=== PATIENT | female | born 1950 | race Caucasian/White ===

== ENCOUNTER 2020-01-19 07:02 | Day surgery (SDC) | payer MEDICARE, OTHER ==
[~2020-01-19 07:02] MED LIST: Brimonidine 0.2% Ophth Soln 5 ML Bottle EYERT SCH; Cefuroxime 10 MG/ML SYRINGE EYERT SCH; Phenylephrine 2.5% Ophth Soln 15 ML Bot EYERT SCH; Pilocarpine 4% Ophth Soln 15 ML Bot EYERT SCH; Polymyxin B/Trimethoprim 10 ML Bottle EYERT SCH; Tropicamide 1% Ophth Soln 15 ML Bottle EYERT SCH
[2020-01-19] MEDS: Ofloxacin 0.3% Ophth Soln 5 ML Bottle EYELF SCH ×3 (07:32→09:13)
[2020-01-19] MEDS: Brimonidine 0.2% Ophth Soln 5 ML Bottle EYELF SCH ×4 (07:38→09:13)
[2020-01-19] MEDS: Tropicamide 1% Ophth Soln 15 ML Bottle EYELF SCH ×4 (07:43→08:29)
[2020-01-19] MEDS: Phenylephrine 2.5% Ophth Soln 2 ML Bot EYELF SCH ×7 (07:43→08:54)
--- NOTE | 2020-01-19 07:55 | PCM.PREANE ---
Preanesthetic Assessment - Procedure Proposed Procedure: Cataract - Anesthesia/Transfusion/Family Hx Anesthesia History: Prior Anesthesia Without Reaction Type of Anesthesia Reaction: Excessive Nausea/Vomiting Family History of Anesthesia Reaction: No Transfusion History: No Prior Transfusion(s) Intubation History: Unknown - Review of Systems General: No Symptoms Pulmonary: No Symptoms Cardiovascular: No Symptoms (HTN) Gastrointestinal: No Symptoms (GERD) Neurological: No Symptoms (Lower back pain with injections being given.) Other: Reports: Easy Bruising, Thyroid Problems (Hypothyroid), Anxiety - Physical Assessment NPO Status Date: 01/18/20 NPO Status Time: 21:00 Vital Signs: HR: 80 BP: 146/73 Resp:16 HR: 80 Sat: 96% Height: 1.55 m Weight: 70.307 kg ASA Class: 3 Mental Status: Alert & Oriented x3 Airway Class: Mallampati = 2 Dentition: Reports: Normal Dentition, Caries Thyro-Mental Finger Breadths: 3 Mouth Opening Finger Breadths: 3 ROM/Head Extension: Full Lungs: Clear to Auscultation, Normal Respiratory Effort Cardiovascular: Regular Rate, Regular Rhythm, No Murmurs - Allergies Allergies/Adverse Reactions: Allergies Allergy/AdvReac Type Severity Reaction Status Date / Time Sulfa (Sulfonamide Allergy Cannot Verified 01/18/20 15:16 Antibiotics) Remember - Anesthesia Plan Pre-Op Medication Ordered: None - Acknowledgements Anesthesia Type Planned: MAC Pt an Appropriate Candidate for the Planned Anesthesia: Yes Alternatives and Risks of Anesthesia Discussed w Pt/Guardian: Yes Pt/Guardian Understands and Agrees with Anesthesia Plan: Yes PreAnesthesia Questionnaire - HOME MEDS Home Medications: Home Meds ALPRAZolam [Xanax] 0.5 mg PO DAILY PRN 01/18/20 [History] Allopurinol [Zyloprim] 300 mg PO DAILY 01/18/20 [History] Benazepril [Lotensin] 20 mg PO DAILY 01/18/20 [History] Celecoxib 200 mg PO DAILY 01/18/20 [History] Levothyroxine 75 mcg PO DAILY 01/18/20 [History] Omeprazole Magnesium [Prilosec Otc] 20 mg PO DAILY 01/18/20 [History] amLODIPine [Norvasc] 5 mg PO DAILY 01/18/20 [History] - CURRENT (IN HOUSE) MEDS Current Meds: Current Medications Brimonidine Tartrate (Alphagan 0.2% Ophth Soln) 0 ml EYELF ASDIRECTED ASIA Stop: 01/19/20 18:00 Last Admin: 01/19/20 07:38 Dose: 1 drop Cefuroxime Sodium (Zinacef) 0 mg EYELF ASDIRECTED ASIA Stop: 01/19/20 18:00 Lidocaine HCl (Xylocaine-Mpf 1%) 2 ml INJECT ONETIME ASIA Stop: 01/19/20 18:00 Ofloxacin (Ocuflox 0.3% Ophth Soln) 0 ml EYELF ASDIRECTED ASIA Stop: 01/19/20 18:00 Last Admin: 01/19/20 07:32 Dose: 1 drop Phenylephrine HCl (Timo-Synephrine 2.5% Ophth Soln) 0 ml EYELF ASDIRECTED ASIA Stop: 01/19/20 18:00 Last Admin: 01/19/20 07:48 Dose: 1 drop Pilocarpine HCl (Pilocar 4% Ophth Soln) 0 ml EYELF ASDIRECTED [facility] Stop: 01/19/20 18:00 Tetracaine HCl (Tetracaine 0.5% Steri-Unit Christina) 0 ml EYEBOTH ASDIRECTED ASIA Stop: 01/19/20 18:00 Tropicamide (Mydriacyl 1% Ophth Soln) 0 ml EYELF ASDIRECTED ASIA Stop: 01/19/20 18:00 Discontinued Medications Brimonidine Tartrate (Alphagan 0.2% Ophth Soln) 0 ml EYERT ASDIRECTED [facility] Cefuroxime Sodium (Zinacef) 0 mg EYERT ASDIRECTED ASIA Phenylephrine HCl (Timo-Synephrine 2.5% Ophth Soln) 0 ml EYERT ASDIRECTED ASIA Pilocarpine HCl (Pilocar 4% Ophth Soln) 0 ml EYERT ASDIRECTED [facility]IA Polymyxin/Trimethoprim Sulfate (Polytrim Ophth Soln) 0 ml EYERT ASDIRECTED ASIA Polymyxin/Trimethoprim Sulfate (Polytrim Ophth Soln) 0 ml EYELF ASDIRECTED [facility] Tropicamide (Mydriacyl 1% Ophth Soln) 0 ml EYERT ASDIRECTED [facility]
[2020-01-19] MEDS: Lidocaine 1% PF 2 ML SDV INJECT SCH ×2 (08:03→09:01)
[2020-01-19] MEDS: Cefuroxime 10 MG/ML SYRINGE EYELF SCH ×2 (08:03→09:11)
[2020-01-19] MEDS: Tetracaine HCl/PF 0.5% 4 ML Bottle EYEBOTH SCH ×5 (08:03→09:01)
[2020-01-19] MEDS: Polymyxin B/Trimethoprim 10 ML Bottle EYELF SCH ×2 (08:05→09:13)
[2020-01-19] MEDS: Pilocarpine 4% Ophth Soln 15 ML Bot EYELF SCH ×2 (08:05→09:13)
--- NOTE | 2020-01-19 09:15 | PCM48HPAN ---
Post Anesthesia Note - EVALUATION WITHIN 48HRS OF ANESTHETIC Vital Signs in Normal Range: Yes Patient Participated in Evaluation: Yes Respiratory Function Stable: Yes Airway Patent: Yes Cardiovascular Function Stable: Yes Hydration Status Stable: Yes Pain Control Satisfactory: Yes Nausea and Vomiting Control Satisfactory: Yes Mental Status Recovered: Yes Vital Signs: Last Vital Signs Temp 36.6 C 01/19/20 07:00 Pulse 80 01/19/20 07:00 Resp 16 01/19/20 07:00 BP 146/73 H 01/19/20 07:00 Pulse Ox 96 01/19/20 07:00
== END 2020-01-19 09:23 | disposition home or self-care (01) ==
LOC: JD.SDS 07:02
PROVIDERS: ATTEND Ophthalmology
DX: H25.813 Combined forms of age-related cataract, bilateral (principal); H16.103 Unspecified superficial keratitis, bilateral; H16.223 Keratoconjunctivitis sicca, not specified as Sjogren's, bilateral; H02.834 Dermatochalasis of left upper eyelid; H02.831 Dermatochalasis of right upper eyelid; I10 Essential (primary) hypertension; E03.9 Hypothyroidism, unspecified; K21.9 Gastro-esophageal reflux disease without esophagitis; F41.9 Anxiety disorder, unspecified; Z79.890 Hormone replacement therapy; Z88.2 Allergy status to sulfonamides; Z79.899 Other long term (current) drug therapy
CPT/HCPCS: 66984; J0697; J2001; A9270-GY; C1780

== ENCOUNTER 2020-04-27 14:01 | Emergency (ER) | payer MEDICARE, OTHER ==
[2020-04-27] MEDS ORDERED: Sodium Chloride 0.9% 10 ML Syringe FLUSH PRN (14:43)
[2020-04-27] MEDS ORDERED: Sodium Chloride 0.9% 1,000 ML IV SCH (14:45)
[2020-04-27] MEDS ORDERED: Iopamidol 755 Mg/ML 100 ML Bottle IVPUSH ONE (16:02)
[2020-04-27] MEDS ORDERED: Sodium Chloride 0.9% 10 ML Syringe FLUSH ONE (16:02)
[2020-04-27] MEDS ORDERED: Sodium Chloride 0.9% 100 ML IV SCH (16:15)
--- NOTE | 2020-04-27 16:35 | CT ---
CT chest Technique: Multiple axial sections through the chest were obtained. Intravenous contrast was utilized. Study has been performed as a pulmonary angiogram protocol. Findings: Pulmonary arteries are well opacified. No filling defects are seen to indicate pulmonary embolism. Aorta shows atherosclerotic calcification without aneurysm. Mediastinum and hilar regions show no adenopathy. 3 slightly prominent lymph node are s noted within the left axillary region. This most likely relates to old inflammatory process. Small to moderate sized hiatal hernia is noted. Small low density finding measuring about 1 cm is seen within the right lobe of the liver most likely relating to small renal cyst. Lungs are clear with no acute parenchymal change. No pleural effusions are seen. Bone window settings were reviewed which shows no acute osseous finding. Diffuse degenerative change is noted within the lower thoracic spine and lumbar spine. Impression: 1. No findings of pulmonary embolism. 2. Other nonacute findings as described above. Diagnostic code #2 This report was dictated in MDT
--- NOTE | 2020-04-27 16:39 | EDM.PDOC ---
ED HPI GENERAL MEDICAL PROBLEM - General Chief Complaint: Syncope Stated Complaint: SYNCOPE Time Seen by Provider: 04/27/20 14:38 Source of Information: Reports: Patient History Limitations: Reports: No Limitations - History of Present Illness INITIAL COMMENTS - FREE TEXT/NARRATIVE: The patient presents with syncope. 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 She had some slurred speech right after she passed out. She did not hit her head and has no headache, fever, chills, cough, congestion, runny nose, chest pain, shortness of breath, abdominal pain, nausea or vomiting. A few days ago she felt a little under the weather. She felt good today. She had lack of energy and a little upset stomach. She has none of that now. This has never happened to her before. Onset: Sudden Duration: Minutes: Severity: Moderate Improves with: Reports: None Worsens with: Reports: None Associated Symptoms: Reports: No Other Symptoms - Related Data Allergies Allergy/AdvReac Type Severity Reaction Status Date / Time Sulfa (Sulfonamide Allergy Cannot Verified 04/27/20 14:29 Antibiotics) Remember Home Meds: Home Meds ALPRAZolam [Xanax] 0.5 mg PO DAILY PRN 01/18/20 [History] Allopurinol [Zyloprim] 300 mg PO DAILY 01/18/20 [History] Benazepril [Lotensin] 20 mg PO DAILY 01/18/20 [History] Levothyroxine 75 mcg PO DAILY 01/18/20 [History] Omeprazole Magnesium [Prilosec Otc] 20 mg PO DAILY 01/18/20 [History] amLODIPine [Norvasc] 5 mg PO DAILY 01/18/20 [History] Cholecalciferol (Vitamin D3) [Vitamin D3] 2,000 mg PO DAILY 04/27/20 [History] Colestipol HCl 1,000 mg PO DAILY 04/27/20 [History] Garlic. 04/27/20 [History] Krill Oil 500 mg PO DAILY 04/27/20 [History] Multivitamin [Multivitamins] 1 tab PO DAILY 04/27/20 [History] calcium polycarbophiL [Fibercon] 1,250 mg PO BID 04/27/20 [History] Past Medical History HEENT History: Reports: Cataract Cardiovascular History: Reports: High Cholesterol, Hypertension Gastrointestinal History: Reports: Diverticulosis, GERD, Other (See Below) Other Gastrointestinal History: diverticulitis Other Genitourinary History: low estrogen GAMBRELER History: Reports: Psychiatric History: Reports: Anxiety, Depression Endocrine/Metabolic History: Reports: Hypothyroidism, Vitamin D Deficiency, Other (See Below) Other Endocrine/Metabolic History: pre diabetic - Infectious Disease History Infectious Disease History: Reports: C-Difficile - Past Surgical History HEENT Surgical History: Reports: Cataract Surgery Musculoskeletal Surgical History: Reports: Knee Replacement, Shoulder Surgery, Other (See Below) Other Musculoskeletal Surgeries/Procedures:: low back sx Social & Family History - Family History Family Medical History: Noncontributory - Tobacco Use Smoking Status *Q: Never Smoker - Caffeine Use Caffeine Use: Reports: Coffee - Recreational Drug Use Recreational Drug Use: No ED ROS GENERAL - Review of Systems Review Of Systems: See Below Constitutional: Reports: No Symptoms HEENT: Reports: No Symptoms Respiratory: Reports: No Symptoms Cardiovascular: Reports: Syncope. Denies: Chest Pain Endocrine: Reports: No Symptoms GI/Abdominal: Reports: No Symptoms : Reports: No Symptoms - Physical Exam Exam: See Below Exam Limited By: No Limitations General Appearance: Alert, No Apparent Distress Ears: Normal External Exam Nose: Normal Inspection Head Exam: Atraumatic, Normocephalic Neck: Normal Inspection Respiratory/Chest: No Respiratory Distress, Lungs Clear, Normal Breath Sounds Cardiovascular: Regular Rate, Rhythm, No Edema, No Murmur GI/Abdominal: Soft, Non-Tender, No Organomegaly, No Mass Neuro Exam (Abbreviated): Alert, Oriented, No Motor/Sensory Deficits EKG INTERPRETATION EKG Date: 04/27/20 Time: 14:58 Rhythm: NSR Rate (Beats/Min): 90 [place]: Normal P-Wave: Present QRS: Normal ST-T: Normal QT: Normal Course - Vital Signs Last Recorded V/S: Last Vital Signs Temp 98.9 F 04/27/20 14:25 Pulse 123 H 04/27/20 14:25 Resp 14 04/27/20 14:25 BP 160/85 H 04/27/20 14:25 Pulse Ox 99 04/27/20 14:25 - Orders/Labs/Meds Orders: Active Orders 24 hr Category Date Time Status Cardiac Monitoring [RC] . DIRECTED Care 04/27/20 14:43 Active EKG Documentation Completion [RC] STAT Care 04/27/20 14:44 Active Peripheral IV Care [RC] . DIRECTED Care 04/27/20 14:44 Active Sodium Chloride 0.9% [Normal Saline] 1,000 ml Med 04/27/20 14:45 Active IV .BOLUS Sodium Chloride 0.9% [Normal Saline] 100 ml Med 04/27/20 16:15 Active IV ASDIRECTED Sodium Chloride 0.9% [Saline Flush] Med 04/27/20 14:43 Active 10 ml FLUSH ASDIRECTED PRN Peripheral IV Insertion Adult [OM.PC] Stat Oth 04/27/20 14:43 Ordered Medication Orders Sodium Chloride (Normal Saline) 1,000 mls @ 1,000 mls/hr IV .BOLUS ASIA Last Admin: 04/27/20 14:55 Dose: 1,000 mls/hr Documented by: YUNIOR Sodium Chloride (Normal Saline) 100 mls @ 60 mls/hr IV ASDIRECTED ASIA Last Admin: 04/27/20 16:10 Dose: 60 mls/hr Documented by: LEBRON Sodium Chloride (Saline Flush) 10 ml FLUSH ASDIRECTED PRN PRN Reason: Keep Vein Open Last Admin: 04/27/20 14:55 Dose: 10 ml Documented by: YUNIOR Labs: Laboratory Tests 04/27/20 04/27/20 04/27/20 Range/Units 14:45 14:45 14:45 WBC 11.78 H (3.98-10.04) K/mm3 RBC 5.07 (3.98-5.22) M/mm3 Hgb 15.2 (11.2-15.7) gm/dl Hct 44.4 (34.1-44.9) % MCV 87.6 D (79.4-94.8) fl MCH 30.0 (25.6-32.2) pg MCHC 34.2 (32.2-35.5) g/dl RDW Std Deviation 44.5 (36.4-46.3) fL Plt Count 357 (182-369) K/mm3 MPV 10.0 (9.4-12.3) fl Neut % (Auto) 74.8 H (34.0-71.1) % Lymph % (Auto) 12.1 L (19.3-51.7) % [place] % (Auto) 10.5 (4.7-12.5) % Eos % (Auto) 0.5 L (0.7-5.8) Baso % (Auto) 0.3 (0.1-1.2) % Neut # (Auto) 8.80 H (1.56-6.13) K/mm3 Lymph # (Auto) 1.43 (1.18-3.74) K/mm3 [place] # (Auto) 1.24 H (0.24-0.36) K/mm3 Eos # (Auto) 0.06 (0.04-0.36) K/mm3 Baso # (Auto) 0.04 (0.01-0.08) K/mm3 Manual Slide Review Normal smear D-Dimer, Quantitative 1.17 H (0.19-0.50) mg/L Sodium 136 (136-145) mEq/L Potassium 3.4 L (3.5-5.1) mEq/L Chloride 100 (98-107) mEq/L Carbon Dioxide 27 (21-32) mEq/L Anion Gap 12.4 (5-15) BUN 15 (7-18) mg/dL Creatinine 1.0 (0.55-1.02) mg/dL Est Cr Clr Drug Dosing 38.94 mL/min Estimated GFR (MDRD) 55 (>60) mL/min BUN/Creatinine Ratio 15.0 (14-18) Glucose 182 H (83-115) mg/dL Calcium 9.5 (8.5-10.1) mg/dL Magnesium 1.9 (1.8-2.4) mg/dl Total Bilirubin 0.4 (0.2-1.0) mg/dL AST 20 (15-37) U/L ALT 27 (14-59) U/L Alkaline Phosphatase 58 (46-116) U/L Troponin I < 0.017 (0.00-0.056) ng/mL Total Protein 7.5 (6.4-8.2) g/dl Albumin 3.8 (3.4-5.0) g/dl Globulin 3.7 gm/dL Albumin/Globulin Ratio 1.0 (1-2) Meds: Medications Generic Name Dose Route Start Last Admin Trade Name Freq PRN Reason Stop Dose Admin Sodium Chloride 1,000 mls @ 1,000 mls/hr 04/27/20 14:45 04/27/20 14:55 Normal Saline IV 1,000 mls/hr .BOLUS ASIA Administration Sodium Chloride 100 mls @ 60 mls/hr 04/27/20 16:15 04/27/20 16:10 Normal Saline IV 60 mls/hr ASDIRECTED ASIA Administration Sodium Chloride 10 ml 04/27/20 14:43 04/27/20 14:55 Saline Flush FLUSH 10 ml ASDIRECTED PRN Administration Keep Vein Open Discontinued Medications Generic Name Dose Route Start Last Admin Trade Name Delia PRN Reason Stop Dose Admin Iopamidol 100 ml 04/27/20 16:02 04/27/20 16:10 [id number] (76%) IVPUSH 04/27/20 16:03 100 ml ONETIME ONE Administration Sodium Chloride 10 ml 04/27/20 16:02 04/27/20 16:10 Saline Flush FLUSH 04/27/20 16:03 10 ml ONETIME ONE Administration - Re-Assessments/Exams Free Text/Narrative Re-Assessment/Exam: 04/27/20 16:59 I ordered an IV NS 1L bolus, EKG, and labs. Her EKG shows a NSR with no acute changes. Her WBC was up slightly at 11.78. Her D-dimer was elevated at 1.17. Her K was low at 3.4. Her glucose was 182. Her troponin is negative. I ordered a CT angio of her chest and it showed no findings of pulmonary embolism. Nothing acute was seen. She feels better. I will get her a holter monitor for 48 hours and have her follow up with her doctor. Departure - Departure Time of Disposition: 17:05 Disposition: Home, Self-Care 01 Condition: Good Clinical Impression: Syncope Qualifiers: Syncope type: unspecified Qualified Code(s): R55 - Syncope and collapse - Discharge Information *PRESCRIPTION DRUG MONITORING PROGRAM REVIEWED*: Not Applicable *COPY OF PRESCRIPTION DRUG MONITORING REPORT IN PATIENT BILL: Not Applicable Referrals: Anjelica Crowe NP [Primary Care Provider] - 1 Week Forms: ED Department Discharge Additional Instructions: Take your medication as prescribed. Drink plenty of fluids. Wear the holter monitor for 48 hours. Please return if you are worse. Sepsis Event Note (ED) - Evaluation Sepsis Screening Result: No Definite Risk - Focused Exam Vital Signs: Vital Signs Temp Pulse Resp BP Pulse Ox 04/27/20 14:25 98.9 F 123 H 14 160/85 H 99 - My Orders Last 24 Hours: My Active Orders 04/27/20 14:43 Cardiac Monitoring [RC] . DIRECTED Sodium Chloride 0.9% [Saline Flush] 10 ml FLUSH ASDIRECTED PRN Peripheral IV Insertion Adult [OM.PC] Stat 04/27/20 14:44 EKG Documentation Completion [RC] STAT Peripheral IV Care [RC] . DIRECTED 04/27/20 14:45 Sodium Chloride 0.9% [Normal Saline] 1,000 ml IV .BOLUS 04/27/20 16:15 Sodium Chloride 0.9% [Normal Saline] 100 ml IV ASDIRECTED - Assessment/Plan Last 24 Hours: My Active Orders 04/27/20 14:43 Cardiac Monitoring [RC] . DIRECTED Sodium Chloride 0.9% [Saline Flush] 10 ml FLUSH ASDIRECTED PRN Peripheral IV Insertion Adult [OM.PC] Stat 04/27/20 14:44 EKG Documentation Completion [RC] STAT Peripheral IV Care [RC] . DIRECTED 04/27/20 14:45 Sodium Chloride 0.9% [Normal Saline] 1,000 ml IV .BOLUS 04/27/20 16:15 Sodium Chloride 0.9% [Normal Saline] 100 ml IV ASDIRECTED
== END 2020-04-27 17:57 | disposition home or self-care (01) ==
LOC: JD.ED 14:01
DX: R55 Syncope and collapse (principal); I10 Essential (primary) hypertension; F41.9 Anxiety disorder, unspecified; F32.9 Major depressive disorder, single episode, unspecified; K21.9 Gastro-esophageal reflux disease without esophagitis; E03.9 Hypothyroidism, unspecified; Z88.2 Allergy status to sulfonamides; Z79.899 Other long term (current) drug therapy
CPT/HCPCS: 36415; 71275; 80053; 83735; 84484; 85025; 85379; 93005; 93225; 93226; 96360; 96361; 99284; J7030; J7050; Q9967

== ENCOUNTER 2025-07-13 08:00 | Day surgery (SDC) | payer MEDICARE, BC ==
[~2025-07-13 08:00] MED LIST changes: -Brimonidine 0.2% Ophth Soln 5 ML Bottle EYERT SCH; -Cefuroxime 10 MG/ML SYRINGE EYERT SCH; +Dexamethasone 4 MG/ML 5 ML MDV ONE; +Ketorolac 30 MG/ML SDV ONE; +Lactated Ringers 1,000 ML IV SCH; +Ondansetron 4 MG/2 ML SDV ONE; -Phenylephrine 2.5% Ophth Soln 15 ML Bot EYERT SCH; -Pilocarpine 4% Ophth Soln 15 ML Bot EYERT SCH; -Polymyxin B/Trimethoprim 10 ML Bottle EYERT SCH; +Sodium Chloride 0.9% 10 ML Syringe FLUSH PRN; +Sodium Chloride 0.9% 10 ML Syringe FLUSH SCH; -Tropicamide 1% Ophth Soln 15 ML Bottle EYERT SCH; +dexmedeTOMIDine HCl 200 MCG/2 ML SDV ONE; +fentaNYL 250 MCG/5 ML SDV ONE; +propofoL 500 MG/50 ML 50 ML ONE
[2025-07-13] MEDS: Lactated Ringers 1,000 ML IV SCH (08:20)
[2025-07-13] MEDS: Acetaminophen Soln 650 MG/20.3 ML UD Cup PO ONE (08:39)
[2025-07-13] MEDS ORDERED: Labetalol 100 MG/20 ML MDV ONE (10:16)
[2025-07-13] MEDS: EPINEPHrine 1 MG/ML SDV ONE (10:23)
[2025-07-13] MEDS ORDERED: Lactated Ringers 1,000 ML ONE (10:48)
[2025-07-13] MEDS ORDERED: Ondansetron 4 MG/2 ML SDV ONE (10:49)
[2025-07-13] MEDS ORDERED: Propofol 200 MG/20 ML SDV ONE ×3 (10:51→11:23)
[2025-07-13] MEDS ORDERED: Ondansetron 4 MG/2 ML SDV IVPUSH PRN (11:51)
[2025-07-13] MEDS ORDERED: fentaNYL 100 MCG/2 ML SDV IVPUSH PRN (11:51)
== END 2025-07-13 13:36 | disposition home or self-care (01) ==
LOC: JD.SDS 08:00
PROVIDERS: ATTEND Obstetrics & Gynecology
DX: N81.10 Cystocele, unspecified (principal); N81.6 Rectocele; E11.9 Type 2 diabetes mellitus without complications; E78.00 Pure hypercholesterolemia, unspecified; E03.9 Hypothyroidism, unspecified; I10 Essential (primary) hypertension; Z88.2 Allergy status to sulfonamides; Z88.8 Allergy status to other drugs, medicaments and biological substances; Z79.899 Other long term (current) drug therapy; Z79.890 Hormone replacement therapy
CPT/HCPCS: 57120; A9270; J0169; J0665; J0690; J1100; J1885; J1920; J2405; J2704; J3010; J7120; 00942; 99100; J1171; J3490